=== PATIENT | male | born 1965 | race Caucasian/White ===

== ENCOUNTER → 2022-04-25 11:14 | Outpatient (CLI) | payer BC, SELFPAY ==
--- NOTE | ~2022-04-25 | CT_ITS ---
EXAMINATION:CT lung screening DATE: 04/25/2022 11:36 INDICATION: Personal history of tobacco dependence. Current smoker with 30 pack year history. TECHNIQUE: Computed tomography (CT) of the chest was performed without intravenous contrast. Automate d exposure control and iterative reconstruction technique were employed. The dose-length product (DLP ) was 64.33 mGy-cm. COMPARISON: None. FINDINGS: There is moderate emphysema. There is mild atelectasis bilaterally. There is mild bronchiec tasis in the inferior lungs. A calcified left lung nodule is consistent with old granulomatous diseas e. No pleural effusion. The heart size is normal. No pericardial effusion. Calcifications in the sple en are consistent with old granulomatous disease. There is mild chronic anterior wedging of multiple thoracic vertebral bodies. There is severe thoracic spondylosis. IMPRESSION: 1. Lung-RADS category 1: Negative. Continue annual screening with noncontrast low-dose chest CT in 12 months. Reviewed, dictated and finalized at location [facility]. IMPRESSION: 1. Lung-RADS category 1: Negative. Continue annual screening with noncontrast l ow-dose chest CT in 12 months.
== END ==
PROVIDERS: PCP Internal Medicine; Visit Provider Internal Medicine
DX: Z12.2 Encounter for screening for malignant neoplasm of respiratory organs (principal); F17.200 Nicotine dependence, unspecified, uncomplicated
CPT/HCPCS: 71271

== ENCOUNTER 2023-05-10 00:07 | Day surgery (SDC) | payer BC, SELFPAY ==
[2023-04-26 13:46] VITALS: BMI 22.8
[2023-05-10 11:55] VITALS: BP 136/89; PULSE 93; RESP 18; TEMP 36.8; O2SAT 96; BMI 21.9
--- NOTE | 2023-05-10 12:16 | PM.HPGS ---
History of Present Illness History of Present Illness Consent: Risks, benefits, and alternatives have been discussed and questions answered. Patient agrees to proceed with procedure. Chief complaint: CIBH,IBS with diarrhea, abnormal weight loss Narrative: Cirilo Senior is a 57 year old male with chronic diarrhea. Also has history of polyps. Review of Systems Review of Systems: All systems reviewed & are unremarkable except as noted in HPI and below PMFSH Past Medical History Medical History Change in bowel habits Chronic diarrhea Hx of adenomatous colonic polyps Irritable bowel syndrome with diarrhea Tobacco use Weight loss Social History Social History Smoking packs per day: 1 Smoking cigarettes per day: 20.0 Years smoked: 40 Smoking pack-years: 40.00 Smoking status: Current every day smoker Tobacco type: cigarettes Alcohol intake: never Substance use: unknown Substance use type: marijuana Other substance usage details: will smoke Marijuana occasionally Living arrangements: with roommate(s) Spiritual care concerns: No Meds Home Medications and Allergies Home Medications Medication Instructions Recorded Confirmed Type No Home Medications 05/10/23 05/10/23 History Allergies Allergy/AdvReac Type Severity Reaction Status Date / Time primidone AdvReac Rash Verified 05/10/23 12:06 Vital Signs Vital Signs - 24 hr 05/10/23 11:55 Temperature 36.8 C Pulse Rate 93 Respiratory Rate 18 Blood Pressure 136/89 Pulse Oximetry 96 Oxygen Delivery Room Air Exam Const: General: alert Orientation/consciousness: patient oriented x3 Resp: Auscultation: clear to auscultation bilaterally Cardio: Rhythm: regular rhythm GI: GI Palp: Yes Soft to palpation and No Tenderness to palpation present (GI) Neuro: General: patient oriented x3 Assessment and Plan Assessment and plan (1) Chronic diarrhea: Code(s): K52.9 - Noninfective gastroenteritis and colitis, unspecified Status: Acute Assessment and Plan: Colonoscopy with possible biopsy or polypectomy or cautery or injection of substances.
[2023-05-10] MEDS: LACTATED RINGERS 1,000 ML 150 ML IV CONT (12:21)
--- NOTE | 2023-05-10 12:38 | P.PNAN_ITS ---
Anes - Initial Pre Proc Eval Procedure: Operation Date: 05/10/23 13:15 Proposed Procedures p Colonoscopy - Jhonny De La Cruz MD Date/Time: 05/10/23 12:38 Surgeon: Jhonny De La Cruz MD Pre Op Diagnosis: CIBH,IBS with diarrhea, abnormal weight loss Patient Data Age: 57 Gender: M Height: 1.68 m Weight: 61.5 kg Last Vital Signs Temp 98.2 F 05/10/23 11:55 Pulse 93 05/10/23 11:55 Resp 18 05/10/23 11:55 BP 136/89 05/10/23 11:55 Pulse Ox 96 05/10/23 11:55 O2 Del Method Room Air 05/10/23 11:55 Allergies Allergy/AdvReac Type Severity Reaction Status Date / Time primidone AdvReac Rash Verified 05/10/23 12:06 Home Medications Medication Instructions Recorded Confirmed Type No Home Medications 05/10/23 05/10/23 History Patient hx anesthesia problems: none Family hx anesthesia problems: none Results Review: All pre-operative results and documents have been reviewed as part of the pre- operative evaluation. [facility] Past Medical History Medical History Change in bowel habits Chronic diarrhea Hx of adenomatous colonic polyps Irritable bowel syndrome with diarrhea Tobacco use Weight loss Social History Social History Smoking packs per day: 1 Smoking cigarettes per day: 20.0 Years smoked: 40 Smoking pack-years: 40.00 Smoking status: Current every day smoker Tobacco type: cigarettes Alcohol intake: never Substance use: unknown Substance use type: marijuana Other substance usage details: will smoke Marijuana occasionally Living arrangements: with roommate(s) Spiritual care concerns: No Anes - Eval Final PreProcedure Day of Procedure 05/10/23 12:38 Patient weight: normal Heart: regular rate and rhythm Lungs: clear to auscultation Airway: Mallampati scale class II Neurological: alert and oriented Last oral intake: >/= 8 hours ASA classification: II Emergent: no Anesthetic plan: proceed Anesthesia type and monitoring: general GIVS and standard monitoring Results Review: All pre-operative results and documents have been reviewed as part of the pre- operative evaluation. Informed Consent: The patient's anesthetic plan and its attendant risks and benefits were discussed with the patient/family/POA. Questions were solicited and answers provided to the satisfaction of the patient/family/POA.
[2023-05-10 13:25] VITALS: BP 105/63; PULSE 85; RESP 18; O2SAT 97
[2023-05-10 13:35] VITALS: BP 115/85; PULSE 75; RESP 20; O2SAT 97
[2023-05-10 13:45] VITALS: BP 110/80; PULSE 75; RESP 20; O2SAT 97
== END 2023-05-10 14:01 | disposition home or self-care (01) ==
PROVIDERS: PCP Internal Medicine; Visit Provider Internal Medicine Gastroenterology
PROC: 0DJD8ZZ Inspection of Lower Intestinal Tract, Via Natural or Artificial Opening Endoscopic (ICD-10-PCS; CPT 45378; principal; 2023-05-10 13:15)
DX: K58.0 Irritable bowel syndrome with diarrhea (principal); K64.8 Other hemorrhoids; F17.210 Nicotine dependence, cigarettes, uncomplicated; F12.90 Cannabis use, unspecified, uncomplicated; Z86.010 Personal history of colon polyps
CPT/HCPCS: 45380; 88305; J2704; J7120

== ENCOUNTER 2024-06-26 09:00 | Outpatient (CLI) | payer OTHER, SELFPAY ==
--- NOTE | ~2024-06-26 | US_ITS ---
EXAMINATION: US renal BI DATE: 06/26/2024 14:23 INDICATION: Hematuria TECHNIQUE: Multiple ultrasound grayscale images of the kidneys were obtained. COMPARISON: None. FINDINGS: The right kidney measures 11.8 x 4.0 x 3.9 cm. The left kidney measures 10.6 x 4.8 x 5.9 cm. The kidn eys demonstrate normal echogenicity. There is no hydronephrosis in either kidney. No stones identifi ed. The bladder is distended with 9.9 x 5.7 x 8.5 cm diverticulum arising from a small neck along the right posterior wall of the bladder. There is an additional small diverticulum along the left oceanography professor ior bladder wall. There is mild left hydroureter extending to the bladder without evident obstructing mass or shadowing stone. IMPRESSION: 1. Normal kidneys without hydronephrosis. 2. Bladder diverticula, the largest on the right measuring up to 9.9 cm maximal diameter. 3. Mild left hydroureter extending to the ureterovesicular junction without evident obstructing stone or mass. The bladder diverticula could be related to chronic outlet obstruction. Reviewed, dictated and finalized at location [facility]. R [employer] IMPRESSION: 1. Normal kidneys without hydronephrosis. 2. Bladder diverticula, the largest on the right measuring up to 9.9 cm maximal diameter. 3. Mild left hydroureter extending to the ureterovesicular junction without tiffany dent obstructing stone or mass. The bladder diverticula could be related to chr onic outlet obstruction.
== END 2024-06-26 09:01 | disposition home or self-care (01) ==
PROVIDERS: PCP Internal Medicine; Visit Provider Internal Medicine
DX: R31.9 Hematuria, unspecified (principal); N32.3 Diverticulum of bladder; N13.4 Hydroureter
CPT/HCPCS: 76775